=== PATIENT | female | born 1955 | race Caucasian/White ===

== ENCOUNTER 2022-01-02 16:03 | Emergency (ER) | payer MEDICARE, BC | END 2022-01-02 18:32 | disposition home or self-care (01) | LOC: JP.ED 16:03 | DX: R55 Syncope and collapse (principal); E86.0 Dehydration; N17.9 Acute kidney failure, unspecified; I10 Essential (primary) hypertension; E78.00 Pure hypercholesterolemia, unspecified | CPT/HCPCS: 36415; 80048; 84443; 84484; 85025; 85379; 93005; 93010; 99283; 99284-25 ==